=== PATIENT | female | born 1970 | race Two or more races ===

== ENCOUNTER → 2021-07-13 09:54 | Outpatient (BNVA) | payer OTHER, SELFPAY | PROVIDERS: PCP Internal Medicine; Visit Provider Physician Assistant | DX: Z13.89 Encounter for screening for other disorder (principal) ==

== ENCOUNTER → 2021-07-16 08:08 | Outpatient (BNVA) | payer OTHER, SELFPAY | PROVIDERS: PCP Internal Medicine; Visit Provider Physician Assistant | DX: E66.9 Obesity, unspecified (principal); E11.9 Type 2 diabetes mellitus without complications; M79.7 Fibromyalgia; L93.2 Other local lupus erythematosus; Z98.84 Bariatric surgery status; Z68.35 Body mass index [BMI] 35.0-35.9, adult | CPT/HCPCS: 99202 ==

== ENCOUNTER 2021-07-24 09:38 | Outpatient (REF) | payer OTHER, SELFPAY ==
[2021-07-24 09:52] LABS: MANUAL DIFF FLAG NO
[2021-07-24 11:13] LABS: Basophils Absolute Auto 0.1 X10*3/uL (0.0-0.2); Basophils Percent Auto 1.3 % (0-2); Eosinophils Absolute Auto 0.4 X10*3/uL (0.0-0.4); Eosinophils Percent Auto 4.4 % (0-4); Hematocrit 43.8 % (37.0-47.0); Hemoglobin 14.5 g/dl (12.0-16.0); Imm Gran Abs Auto 0.03 X10*3/uL (0.00-0.03); Imm Gran Pct Auto 0.4 % (0.0-0.4); Lymphocytes Absolute Auto 2.7 X10*3/uL (1.2-4.9); Lymphocytes Percent Auto 34.7 % (20-40); Mean Corpuscular HGB Conc 33.1 g/dl (31.0-35.0); Mean Corpuscular Hemoglobin 34.8 pg (27.0-33.0); Mean Platelet Volume 10.1 fL (9.4-12.3); Monocytes Absolute Auto 0.6 X10*3/uL (0.1-1.2); Monocytes Percent Auto 7.7 % (2-11); Neutrophils Absolute Auto 4.1 x10*3/uL (2.0-8.3); Neutrophils Percent Auto 51.5 % (45-73); Platelet Count 262 X10*3/uL (160-400); Red Blood Count 4.17 X10*6/uL (4.20-5.50); White Blood Count 7.9 X10*3/uL (4.8-10.8)
[2021-07-24 11:54] LABS: Alanine Aminotransferase 55 U/L (0-31); Albumin Level 4.2 g/dL (3.5-5.0); Alkaline Phosphatase 118 U/L (39-117); Anion Gap 14 (12-20); Aspartate Amino Transferase 25 U/L (5-31); Bilirubin Total 0.4 mg/dL (0.0-1.0); Blood Urea Nitrogen 17 mg/dL (9-16); C Reactive Protein 0.16 mg/dL (< or = 0.50); Calcium 9.5 mg/dL (8.4-10.2); Carbon Dioxide 25 mmol/L (22-29); Chloride 108 mmol/L (96-108); Cholesterol 193 mg/dL; Estimated Average Glucose 105 mg/dL; Estimated Glomerular Filt Rate > 60; Glucose Random 82 mg/dL (60-115); HDL Cholesterol 47 mg/dL; Hemoglobin A1c % 5.3 %; Iron 114 mcg/dL (30-160); LDL Cholesterol Calculated 83 mg/dl; Percent Iron Saturation 36 % (15-50); Potassium 4.4 mmol/L (3.3-5.1); Sodium 143 mmol/L (135-145); Total Iron Binding Capacity 318 mcg/dL (228-428); Triglycerides 316 mg/dL; Unsaturated Iron Binding 204 ug/dL
[2021-07-24 12:10] LABS: Ferritin 711 ng/mL (10-250); TSH reflex Free T4 0.87 uIU/mL (0.32-4.0)
[2021-07-24 12:41] LABS: Insulin 24 uU/mL (2-29); Vitamin D 25-OH Total 43.2 ng/mL (>30)
[2021-07-26 09:00] LABS: Folate 15.9 ng/mL (> or = 4.0); Vitamin B12 1682 pg/mL (200-900)
[2021-07-26 13:56] LABS: PTHI 52 pg/mL (16-77)
[2021-07-28 02:17] LABS: Zinc 98 mcg/dL (60-130)
[2021-07-29 11:21] LABS: Vitamin A 87 mcg/dL (38-98)
[2021-07-29 17:27] LABS: Vitamin B1 12 nmol/L (8-30)
== END 2021-07-24 09:39 | disposition home or self-care (01) ==
LOC: HO.LAB 09:38
PROVIDERS: Visit Provider Physician Assistant
DX: E11.9 Type 2 diabetes mellitus without complications (principal); E66.9 Obesity, unspecified; Z98.84 Bariatric surgery status
CPT/HCPCS: 36415; 80053; 80061; 82306; 82607; 82728; 82746; 83036; 83525; 83540; 83970; 84425; 84443; 84590; 84630; 85025; 86140

== ENCOUNTER 2021-08-11 10:52 | Outpatient (REF) | payer OTHER, SELFPAY ==
--- NOTE | ~2021-08-11 | FL_ITS ---
EXAMINATION: XR GI SERIES CLINICAL INFORMATION: Gastric bypass 8 years ago. COMPARISON: None TECHNIQUE: Air-contrast upper GI examination. FINDINGS: There is normal apposition of the vocal cords while saying E . There is normal elevation of the soft palate while saying candy . Patient swallowed thin and thick barium and half-inch diameter barium tablet without difficulty. No nasopharyngeal reflux or tracheal aspiration identified. No Zenker's diverticulum identified. There is normal esophageal motility without persistent stricture or hiatal hernia. There is noted to be spontaneous gastric esophageal reflux to the thoracic inlet which cleared slowly. No mucosal ulcer identified. Patient is status post gastric bypass surgery with no abnormal mass in the region of the anastomosis. No extravasation of contrast present. No mucosal ulceration. There is no delay in emptying of the gastric pouch. FLUOROSCOPY TIME: 1.9 minutes DOSE AREA PRODUCT: 13.343 Gy-cm2 (metzger-centimeter squared) FL/FL upper GI series IMPRESSION: Spontaneous gastroesophageal reflux to the level of the thoracic inlet. No significant abnormality involving the gastric bypass as described.
== END 2021-08-11 10:53 | disposition home or self-care (01) ==
LOC: HO.XRAY 10:52
PROVIDERS: Visit Provider Physician Assistant
DX: E66.9 Obesity, unspecified (principal); Z98.84 Bariatric surgery status
CPT/HCPCS: 74240

== ENCOUNTER → 2021-08-16 08:48 | Outpatient (REF) | payer OTHER, SELFPAY ==
--- NOTE | ~2021-08-16 | XR_ITS ---
EXAMINATION: XR CHEST CLINICAL INFORMATION: Obesity. COMPARISON: None TECHNIQUE: 2 views of the chest were obtained. FINDINGS: The lungs are well-expanded and clear. The heart size and pulmonary vascularity is normal. There is moderate spondylosis dorsal spine. No lytic or sclerotic process seen. XR/XR chest 2V IMPRESSION: Unremarkable chest exam.
--- NOTE | 2021-08-16 09:45 | ECG_ITS ---
Test Reason : E66.01 Blood Pressure : / mmHG Vent. Rate : 081 BPM Atrial Rate : 081 BPM P-R Int : 152 ms QRS Dur : 078 ms QT Int : 374 ms P-R-T Axes : 045 -07 -06 degrees QTc Int : 434 ms Normal sinus rhythm Inferior infarct , age undetermined Possible Anterior infarct , age undetermined Abnormal ECG No previous ECGs available Referred By: Vania Centeno Electronically Signed By:DEB SORIA MD
== END ==
LOC: HO.CARD 08:48
PROVIDERS: PCP Internal Medicine; Visit Provider Physician Assistant
DX: R94.31 Abnormal electrocardiogram [ECG] [EKG] (principal); M79.7 Fibromyalgia; K76.0 Fatty (change of) liver, not elsewhere classified; E78.2 Mixed hyperlipidemia; Z98.84 Bariatric surgery status
CPT/HCPCS: 71046; 93005; 99212

== ENCOUNTER → 2021-09-10 09:58 | Outpatient (BNVA) | payer OTHER, SELFPAY | PROVIDERS: PCP Internal Medicine; Visit Provider Physician Assistant | DX: E66.9 Obesity, unspecified (principal); Z68.33 Body mass index [BMI] 33.0-33.9, adult; E78.1 Pure hyperglyceridemia; E11.9 Type 2 diabetes mellitus without complications; R94.31 Abnormal electrocardiogram [ECG] [EKG]; Z11.0 Encounter for screening for intestinal infectious diseases; Z98.84 Bariatric surgery status | CPT/HCPCS: 99211; 99212 ==

== ENCOUNTER 2021-09-10 16:53 | Outpatient (REF) | payer OTHER, SELFPAY ==
[2021-09-11 15:18] LABS: H Pylori Breath Test Negative (Negative)
== END 2021-09-10 16:54 | disposition home or self-care (01) ==
LOC: HO.LNP 16:53
PROVIDERS: Visit Provider Physician Assistant
DX: E66.9 Obesity, unspecified (principal); E11.9 Type 2 diabetes mellitus without complications; R94.31 Abnormal electrocardiogram [ECG] [EKG]; Z98.84 Bariatric surgery status; Z11.0 Encounter for screening for intestinal infectious diseases
CPT/HCPCS: 83013

== ENCOUNTER → 2021-09-13 10:59 | Outpatient (BNVA) | payer OTHER, SELFPAY | PROVIDERS: PCP Internal Medicine; Visit Provider Dietitian, Registered | DX: E66.9 Obesity, unspecified (principal) | CPT/HCPCS: 97802 ==

== ENCOUNTER → 2021-09-15 13:24 | Outpatient (BNVA) | payer OTHER, SELFPAY | PROVIDERS: PCP Internal Medicine; Visit Provider Counselor Mental Health | DX: F41.1 Generalized anxiety disorder (principal); M79.7 Fibromyalgia; E66.9 Obesity, unspecified; Z98.84 Bariatric surgery status | CPT/HCPCS: 90791 ==

== ENCOUNTER 2021-09-21 09:28 | Day surgery (SDC) | payer OTHER, SELFPAY ==
--- NOTE | 2021-09-20 19:13 | MHC.SHP ---
Pre-Procedural Eval Section A Date of Service: 09/20/21 The patient is an INPATIENT: No The History & Physical has been completed within 30 days and I have reviewed it.: Yes Section B Chief Complaint: surgery status Relevant Family History (Specify if Yes): No Relevant Social History: None Present Medications: None Medical History: No relevant PMH History of Previous Operations: Relevant previous surgery/procedure and date(s) (Lap gastric bypass) Allergies: Allergies Allergy/AdvReac Type Severity Reaction Status Date / Time acetaminophen [From Percocet] Allergy Intermediate Confusion Verified 09/10/21 10:30 oxycodone [From Percocet] Allergy Intermediate Confusion Verified 09/10/21 10:30 Review of Systems Sugical H&P ROS: Negative: Constitution, Cardiovascular, Respiratory, Neurological, Psychiatric, Hem-Onc, Allergic/Immunologic, Gastrointestinal, Genitourinary, Musculoskeletal, Integumentary, Endocrine and Eyes/Ears/Nose/Throat Exam Surgical H&P Exam: Normal: HEENT, Normal: Heart, Normal: Lungs, Normal: Extremities, Normal: Abdomen, Normal: Skin and Normal: Neurological Plan Diagnosis/Plan: Unchanged (EGD to assess GERD following gastric bypass. Risks of bleeding and perforation were discussed) I have reviewed the history and physical and performed a pertinent physical examination on my patient. No changes have occurred unless specified.
[2021-09-21 10:00] VITALS: BMI 31.1
[2021-09-21 10:14] VITALS: BP 110/69; PULSE 66; RESP 15; TEMP 36.2; O2SAT 98
[2021-09-21] MEDS: Lactated Ringers 1,000 ML 100 ML IVCONT (10:25)
--- NOTE | 2021-09-21 10:26 | HO.ANESPROP2 ---
[facility] Active Problems Active Problems: All Active Problems (Updated 09/21/21 @ 10:06 by Sara Starr RN) Obesity (Acute) S/P gastric bypass (Acute) Diabetes mellitus (Acute) Fibromyalgia (Acute) Cutaneous lupus erythematosus (Acute) Arthritis (Acute) Migraines, neuralgic (Acute) Elevated triglycerides with high cholesterol (Acute) Steatosis, liver (Acute) Abnormal ECG (Acute) Hypertriglyceridemia (Acute) Generalized anxiety disorder (Acute) Past Medical History Medical History Arthritis Diabetes Fibromyalgia Leukemia Lupus Seizure Family History Family History Mother Diabetes Brother No problems noted. Father Heart problem Daughter No problems noted. Daughter No problems noted. Daughter No problems noted. Daughter No problems noted. Daughter No problems noted. Son No problems noted. Son No problems noted. Surgical History Surgical History Hx of abdominoplasty Hx of appendectomy Hx of breast reduction, elective Hx of colonoscopy Hx of esophagogastroduodenoscopy Hx of gastric bypass Hx of shoulder surgery History of Problems with Anesthesia: No Social History Social History Alcohol intake: never Patient Tobacco Use Status: Never used Tobacco Use of substances other than those prescribed or required for medical reasons: No Are you DNR?: No Advance Directives: No Advance Directives Information Provided: Yes Meds Allergies Allergy/AdvReac Type Severity Reaction Status Date / Time acetaminophen [From Percocet] Allergy Intermediate Confusion Verified 09/21/21 10:08 oxycodone [From Percocet] Allergy Intermediate Confusion Verified 09/21/21 10:08 Active Medications: Current Medications Lactated Ringer's (Lr) 1,000 mls @ 100 mls/hr IVCONT .Q10H KISHA Lactated Ringer's (Lr) 1,000 mls @ 80 mls/hr IVCONT .[id number] COUNT INCLUDES THE [facility] Home Medications Medication Instructions Recorded Confirmed Last Taken Type albuterol sulfate 90 mcg/actuation 2 puff inhalation Q4H PRN wheezing 07/13/21 07/16/21 Unknown History aerosol inhaler (ProAir HFA) bupropion HCl 150 mg tablet,12 hr 150 mg PO QAM 07/13/21 07/16/21 Unknown History sustained-release diazepam 10 mg tablet 10 mg PO BEDTIME PRN 07/13/21 07/16/21 Unknown History diclofenac sodium 1 % topical gel 2 g topical QID 07/13/21 07/16/21 Unknown History (Arthritis Pain (diclofenac)) hydrocortisone 1 % topical cream appl topical BID PRN 07/13/21 07/16/21 Unknown History hydroxychloroquine 200 mg tablet 200 mg PO BID 07/13/21 07/16/21 Unknown History insulin glargine 100 unit/mL (3 10 unit subcut .PRN 07/13/21 07/16/21 Unknown History mL) subcutaneous pen (Lantus Solostar U-100 Insulin) insulin lispro 100 unit/mL 5 unit subcut TID 07/13/21 07/16/21 Unknown History subcutaneous solution (Admelog U-100 Insulin lispro) loratadine 10 mg tablet 10 mg PO DAILY 07/13/21 07/16/21 Unknown History multivitamin 1 tab PO DAILY 07/13/21 07/16/21 Unknown History ondansetron HCl 4 mg tablet 4 mg PO Q8H 07/13/21 07/16/21 Unknown History pregabalin 100 mg capsule 100 mg PO BID 07/13/21 07/16/21 Unknown History tizanidine 2 mg capsule 2 mg PO TID PRN muscle spasm 07/13/21 07/16/21 Unknown History topiramate 50 mg capsule 50 mg PO DAILY 07/13/21 07/16/21 Unknown History sprinkle,extended release 24 hr triamcinolone acetonide 0.1 % topical 07/13/21 07/16/21 Unknown History topical ointment valacyclovir 1 gram tablet 1,000 mg PO DAILY 07/13/21 07/16/21 Unknown History calcium carbonate 600 mg-vitamin 1 tab PO BID 07/14/21 07/16/21 Unknown History D3 10 mcg (400 unit) tablet gabapentin 300 mg capsule 300 mg PO TID 07/14/21 07/16/21 Unknown History lidocaine 5 % topical ointment topical TID 07/14/21 07/16/21 Unknown History lidocaine 5 % topical patch 1 patch topical DAILY PRN mild pain 07/14/21 07/16/21 Unknown History mirabegron 50 mg tablet,extended 5 mg PO DAILY 07/14/21 07/16/21 Unknown History release 24 hr (Myrbetriq) omeprazole 40 mg capsule,delayed 40 mg PO BID 07/14/21 07/16/21 Unknown History release oxybutynin chloride 5 mg 5 mg PO DAILY 07/14/21 07/16/21 Unknown History tablet,extended release 24 hr paroxetine HCl 40 mg tablet 40 mg PO QAM 07/14/21 07/16/21 Unknown History sennosides 8.6 mg tablet (Natural 8.6 mg PO BEDTIME 07/14/21 07/16/21 Unknown History Senna Laxative) duloxetine 60 mg capsule,delayed 90 mg PO DAILY 08/16/21 08/16/21 Unknown History release trazodone 300 mg tablet 400 mg PO BEDTIME PRN 08/16/21 08/16/21 Unknown History Exam Exam Date and Time: September 21, 2021 1026 Height,Weight and Vital Signs: Height 4 ft 11 in Weight 69.853 kg Airway Mallampati Class: II TM Dist: >3cm Neck ROM: Full Loose/Missing/Broken Teeth: No Heart: RRR Lungs: CTA Assessment and Plan Assessment Anesthesia Assessment: Anesthesia Plan Discussed Final Anesthetic Review History of Problems with Anesthesia: No NPO: Yes ASA Class: III Final Preanesthetic Review: Meds/Allgs Chart Reviewed, Consent Obtained/Reviewed and Anes Risks/Benef Reviewed Patient Risk: Intermediate Procedure Risk: Intermediate Anesthetic Plan Anesthetic Plan: MAC: Disposition: Standard PACU
[2021-09-21 10:34] LABS: Glucose, Whole Blood 88 mg/dL (60-115)
--- NOTE | 2021-09-21 10:50 | P.BOP_ITS ---
Brief Operative Note Date of Service: 09/21/21 Pre-op diagnosis: GERD, s/p gastric bypass Post-op diagnosis: same Procedure: PROCEDURE DATE: 09/21/2021 PREOPERATIVE DIAGNOSIS: GERD, s/p gastric bypass POSTOPERATIVE DIAGNOSIS: ?Same as above. 1) Redundant gastric pouch, 2) esophagitis grade II, 3) gastritis PROCEDURE: [id number] with biopsies Surgeon: ?Gordon Martini M.D.. Ph.D. Environmental Emergencies Assistant: ?None ? Anesthesia: IV sedation Estimated blood loss: ?Minimal FINDINGS AND PROCEDURE: ? OPERATIVE INDICATIONS: ?The patient is a 51 year old female known to me who underwent a laparoscopic gastric bypass elsewhere. The patient had inadequate weight loss so far and has GERD.? Based on this information I recommended an upper endoscopy to evaluate the patient's symptoms.? Risks and complications of the surgery were discussed with the patient in advance particularly the possibility of perforation or bleeding that may require surgical intervention. The patient understood the risks and was in agreement with the plan. ? PROCEDURE: After informed consent was obtained by the patient, the patient was ?transferred to the Operating Room and was placed in the supine position.? After successful induction of IV sedation, a mouth block was placed and the patient was placed in the left lateral decubitus position. An upper endoscopy was performed next, the oropharynx and esophagus appeared within the normal limits. There was no hiatal hernia.? The z-line was irregular with tongues of gastric mucosa protruding into the esophagus in less than 50% circumference. Two biopsies were obtained from the distal esophagus 2-3 cm proximal to the GE junction and two biopsies from the GE junction. The gastric pouch was entered. There was very significant proximal fundal redundancy allowing complete scope retroflexion. There was gastritis. The gastrojejunostomy was patent. A biopsy was obtained from the gastric pouch. No significant bleeding was noted from any of the biopsy sites. There was no anastomotic ulcer.? At that point the scope was advanced into the proximal small intestine (proximal Susy limb) which appeared to be normal as well. The Susy limb and the pouch were decompressed and the scope was withdrawn from the patient's mouth. The patient was awaken and was transferred in stable condition to the Recovery Room for further care. I was present and performed all steps of the procedure. There were no residents to assist with this case. Gordon Martini M.D., Ph.D. Surgeon: Rashawn Martini MD Anesthesia: MAC Was an Environmental Emergencies Assistant used for this Procedure?: No Estimated blood loss (mL): 0 IV fluids (mL): 400 Urine output (mL): 0 (No [place] to record) Pathology: other (1) GE junction x2, 2) distal esophagus x2, 3) gastric pouch x1) Condition: stable Disposition: PACU
[2021-09-21 11:23] VITALS: BP 127/70; PULSE 70; RESP 14; TEMP 36.2; O2SAT 99
[2021-09-21 11:38] VITALS: BP 119/74; PULSE 62; RESP 17; O2SAT 99
[2021-09-21] MEDS: ondansetron HCL 4 MG/2 ML VIAL IVPUSH (11:44)
[2021-09-21 11:53] VITALS: BP 100/63; PULSE 60; RESP 17; O2SAT 100
[2021-09-21 12:23] VITALS: BP 110/71; PULSE 56; RESP 17; O2SAT 100
[2021-09-21 12:54] VITALS: BP 114/75; PULSE 60; RESP 17; TEMP 36.1; O2SAT 97
== END 2021-09-21 13:30 | disposition home or self-care (01) ==
PROVIDERS: PCP Internal Medicine; Visit Provider Surgery
PROC: 0DJ08ZZ Inspection of Upper Intestinal Tract, Via Natural or Artificial Opening Endoscopic (ICD-10-PCS; CPT 43235; principal; 2021-09-21 10:40)
DX: K21.9 Gastro-esophageal reflux disease without esophagitis (principal); Z98.84 Bariatric surgery status; K29.50 Unspecified chronic gastritis without bleeding; K20.80 Other esophagitis without bleeding; E66.9 Obesity, unspecified; Z68.33 Body mass index [BMI] 33.0-33.9, adult; R94.31 Abnormal electrocardiogram [ECG] [EKG]; L93.1 Subacute cutaneous lupus erythematosus; M79.7 Fibromyalgia; E78.1 Pure hyperglyceridemia; E11.9 Type 2 diabetes mellitus without complications; Z79.4 Long term (current) use of insulin; Z79.899 Other long term (current) drug therapy; Z88.8 Allergy status to other drugs, medicaments and biological substances; Z85.6 Personal history of leukemia
CPT/HCPCS: 43239; 82947; 88305; 88342; J2250; J2405; J2550

== ENCOUNTER → 2021-09-27 08:57 | Outpatient (REF) | payer OTHER, SELFPAY ==
--- NOTE | ~2021-09-27 | NM_ITS ---
Myocardial perfusion study Indication: Preoperative cardiovascular risk stratification with abnormal EKG Technique: The patient was brought in for a Lexiscan perfusion study on 09/27/2021. Patient performed low-level exercise and was injected 0.4 mg of Lexiscan intravenously. Within a minute of injection, 25 mCi of sestamibi was given intravenously. Images were obtained using the SPECT gamma camera interlaced with the gating device. Images were obtained in supine position. Resting perfusion study was performed on 09/28/2021. Patient was administered 25 mCi of sestamibi intravenously at rest. Images were then obtained in supine position. Images obtained with and without CT attenuation. Total DLP 124 mGy-cm. Images were processed with the software and compared side to side in short axis, horizontal long axis and vertical long axis views. Findings: The stress perfusion study showed non attenuated images show moderately reduced uptake in the apex and mildly reduced uptake in the anterolateral as well as the distal anterior wall of the LV myocardium. Rest the LV myocardium is normally perfused. Attenuation corrected images show mildly reduced uptake in the apex uptake in the septum of the LV myocardium.. The gated study shows normal LV systolic function with calculated LVEF of 63%. LV cavity is normal size. The gated study shows normal systolic wall thickening and contraction of segments. Resting study shows nontender images show normal uptake of radiotracer in all segments of LV myocardium. Attenuation corrected images show mildly reduced uptake in the apex as well as minimally reduced uptake in the septum of the LV myocardium. Gating at rest reveals normal systolic wall motion with ejection fraction at 66%. The findings are consistent with non attenuated images suggestive of mild intensity ischemia of the anterolateral and distal anterior as well as moderate intensity ischemia of the apex. Attenuation corrected images show no clear reversible defect. Overall findings equivocal for anterolateral, distal anterior and apical ischemia. NM/NM cardiolite stress test Impression: 1. Myocardial perfusion imaging study shows equivocal findings of ischemia in the LAD territory. Possibly could be due to shifting breast attenuation artifact. 2. Gated LVEF is 63% 3. Transient ischemic dilatation not present EKG is nondiagnostic for ischemia
--- NOTE | 2021-09-27 09:00 | CA_ITS ---
Acquisition Time: 2021-09-27 09:13:11 Total Exercise Time: 00:02:00 Test Indications: Pre op, Abn. EKG. SOB Medications: Protocol: LEXISCAN Max HR: 114 BPM 67% of Pred: 168 BPM Max BP: 108/074 mmHG Max Work Load: 1.6 METS Pharmacological stress test with Lexiscan injection, while walking on treadmill, without anginal symptoms, without arrythmia, with normotensive response to injection, with nondiagnostic EKG for ischemia. In recovery she reported lightheadedness and headache that was treated with Aminophylline 75mg IVP to reverse Lexiscan with resolution of symptom. Nuclear images pending. Test reviewed with Dr Muro Referred By: Vania Centeno Overread By: JEANMARIE KRUSE
== END ==
LOC: HO.CARD 08:57
PROVIDERS: Visit Provider Surgery
DX: R94.31 Abnormal electrocardiogram [ECG] [EKG] (principal); E11.9 Type 2 diabetes mellitus without complications; E66.9 Obesity, unspecified; Z98.84 Bariatric surgery status
CPT/HCPCS: 78452; 93017; A9500; J0280; J2785

== ENCOUNTER → 2021-10-05 10:51 | Outpatient (REF) | payer OTHER, SELFPAY | LOC: HO.CARD 10:51 | PROVIDERS: PCP Internal Medicine; Visit Provider Surgery | DX: R94.31 Abnormal electrocardiogram [ECG] [EKG] (principal) | CPT/HCPCS: 93308; Q9957 ==

== ENCOUNTER 2021-10-06 08:40 | Outpatient (REF) | payer OTHER, SELFPAY ==
--- NOTE | ~2021-10-06 | US_ITS ---
EXAMINATION: US COMPLETE ABDOMEN WITH LIVER ELASTOGRAPHY CLINICAL INFORMATION: Fatty change of liver. COMPARISON: None. TECHNIQUE: Real-time imaging of the abdominal viscera. Noninvasive ultrasound liver fibrosis assessment is performed using Cristina ElastPQ point quantification shear wave elastography (2D-SWE) with a C5-2 MHz transducer. Multiple elastography samples are obtained. FINDINGS: PANCREAS: The visualized pancreatic head and body are normal in appearance. The tail of the pancreas is obscured from visualization by the overlying bowel gas. ABDOMINAL AORTA: The middle, and distal aortic segments are normal in caliber. The proximal abdominal aorta is not visualized. INFERIOR VENA CAVA: Visualized portions are normal. LIVER: The liver demonstrates normal size, contour and diffuse increased echogenicity. No focal lesion or intrahepatic biliary duct dilatation. The right lobe measures 16.1 cm in length. The left lobe measures 6.85 cm in length. Portal flow is hepatopetal. Shear wave liver elastography median stiffness is 1.87 m/s (reference: normal median stiffness is 1.3 m/s or less). IQR/median stiffness to assess sampling precision is 0.04 (reference: good quality data set is IQR/median stiffness of 0.15 or less). GALLBLADDER: Normal. The gallbladder is physiologically distended without evidence of stones, sludge, polyps, wall thickening or pericholecystic fluid. COMMON BILE DUCT: Normal in caliber measuring 0.9 cm in diameter. RIGHT KIDNEY: Normal. No hydronephrosis. No renal calculi or focal parenchymal lesions. The kidney measures 10.4 cm in maximum dimension. LEFT KIDNEY: Normal. No hydronephrosis. No renal calculi or focal parenchymal lesions. The kidney measures 10.2 cm in maximum dimension. SPLEEN: The spleen measures 6.9 cm in maximum dimension. FREE FLUID: None. US/US abdomen comp w elastography IMPRESSION: Mild hepatic steatosis without focal lesion. Mild splenomegaly without focal lesion. Liver elastography: Median liver stiffness measures 1.87 cm corresponding to cACLD (suggestive). REFERENCE: Society of Radiologists in Ultrasound Liver Stiffness Thresholds (2019): LIVER STIFFNESS THRESHOLDS: *Liver Stiffness equal or less than 1.3 m/s: High probability of being normal. *Liver Stiffness less than 1.7 m/s: In the absence of other known clinical signs, rules out compensated advanced chronic liver disease. *Liver Stiffness 1.7-2.1 m/s: Suggestive of compensated advanced chronic liver disease but need further test for confirmation. *Liver Stiffness over 2.1 m/s: Rules in compensated advanced chronic liver disease. *Liver Stiffness over 2.4 m/s: Suggestive of clinically significant portal hypertension. QUALITY OF DATA SET: *IQR/Median value equal or less than 0.15 implies a quality data set. *IQR/Median value over 0.15 implies a poor quality data set. SIGNIFICANT CHANGE FROM PRIOR EXAM: Significant change if liver stiffness measurement is 10% or greater from prior exam. OTHER CONSIDERATIONS: The stage of liver fibrosis may be overestimated in the setting of acute hepatitis, liver inflammation, elevated liver function tests, hepatic vascular congestion, obstructive cholestasis, non-fasting state, and infiltrative diseases such as amyloidosis and lymphoma. In some patients with NAFLD, the liver stiffness thresholds for compensated advanced chronic liver disease may be lower. In causes other than viral hepatitis and NAFLD, liver stiffness thresholds are not well established.
== END 2021-10-06 08:41 | disposition home or self-care (01) ==
LOC: HO.US 08:40
PROVIDERS: Visit Provider Surgery
DX: K76.0 Fatty (change of) liver, not elsewhere classified (principal)
CPT/HCPCS: 76705; 76981

== ENCOUNTER → 2021-10-12 14:29 | Outpatient (BNVA) | payer OTHER, SELFPAY | PROVIDERS: PCP Internal Medicine; Visit Provider Internal Medicine Cardiovascular Disease | DX: Z01.810 Encounter for preprocedural cardiovascular examination (principal) | CPT/HCPCS: 99202 ==

== ENCOUNTER 2021-10-14 10:50 | Inpatient (IN) | payer OTHER, SELFPAY ==
[2021-10-06 10:20] LABS: MANUAL DIFF FLAG NO
[2021-10-06 11:00] LABS: Basophils Absolute Auto 0.1 X10*3/uL (0.0-0.2); Basophils Percent Auto 1.1 % (0-2); Eosinophils Absolute Auto 0.1 X10*3/uL (0.0-0.4); Eosinophils Percent Auto 1.4 % (0-4); Hematocrit 44.2 % (37.0-47.0); Hemoglobin 14.6 g/dl (12.0-16.0); Imm Gran Abs Auto 0.02 X10*3/uL (0.00-0.03); Imm Gran Pct Auto 0.4 % (0.0-0.4); Lymphocytes Absolute Auto 1.9 X10*3/uL (1.2-4.9); Lymphocytes Percent Auto 33.4 % (20-40); Mean Corpuscular Hemoglobin 35.3 pg (27.0-33.0); Mean Corpuscular Volume 106.8 fL (80.0-98.0); Mean Platelet Volume 10.1 fL (9.4-12.3); Monocytes Absolute Auto 0.4 X10*3/uL (0.1-1.2); Monocytes Percent Auto 7.5 % (2-11); Neutrophils Absolute Auto 3.2 x10*3/uL (2.0-8.3); Neutrophils Percent Auto 56.2 % (45-73); Platelet Count 223 X10*3/uL (160-400); Red Blood Count 4.14 X10*6/uL (4.20-5.50); Red Cell Distribution Width 12.7 % (11.0-16.0); White Blood Count 5.6 X10*3/uL (4.8-10.8)
[2021-10-06 11:04] LABS: Prothrombin Time 11.9 SEC (10.0-13.1)
[2021-10-06 11:06] LABS: Partial Thromboplastin Time 43.2 SEC (24.1-38.0)
[2021-10-06 11:16] LABS: Estimated Average Glucose 100 mg/dL; Hemoglobin A1c % 5.1 %
[2021-10-06 11:18] VITALS: BMI 32.9
[2021-10-06 12:14] LABS: Alanine Aminotransferase 41 U/L (0-31); Albumin Level 4.3 g/dL (3.5-5.0); Alkaline Phosphatase 99 U/L (39-117); Anion Gap 13 (12-20); Aspartate Amino Transferase 27 U/L (5-31); Bilirubin Total 0.5 mg/dL (0.0-1.0); Blood Urea Nitrogen 15 mg/dL (9-16); C Reactive Protein 0.12 mg/dL (< or = 0.50); Calcium 9.6 mg/dL (8.4-10.2); Carbon Dioxide 25 mmol/L (22-29); Chloride 110 mmol/L (96-108); Cholesterol 166 mg/dL; Creatinine Clr Calc Pharmacy 72.9; Estimated Glomerular Filt Rate > 60; Glucose Random 94 mg/dL (60-115); HDL Cholesterol 47 mg/dL; LDL Cholesterol Calculated 99 mg/dl; Potassium 4.3 mmol/L (3.3-5.1); Sodium 144 mmol/L (135-145); Total Protein 6.7 g/dL (6.5-8.0); Triglycerides 104 mg/dL
[2021-10-06 12:23] LABS: TSH reflex Free T4 0.65 uIU/mL (0.32-4.0)
[2021-10-06 12:42] LABS: Insulin 8 uU/mL (2-29)
--- NOTE | 2021-10-10 00:17 | MHC.SHP ---
Pre-Procedural Eval Section A Date of Service: 10/10/21 The patient is an INPATIENT: No The History & Physical has been completed within 30 days and I have reviewed it.: Yes Section B Chief Complaint: Obesity, unspecified Relevant Family History (Specify if Yes): No Relevant Social History: None Present Medications: None Medical History: No relevant PMH History of Previous Operations: Relevant previous surgery/procedure and date(s) (laparoscopic gastric bypass) Allergies: Allergies Allergy/AdvReac Type Severity Reaction Status Date / Time oxycodone [From Percocet] Allergy Intermediate Confusion Verified 10/01/21 12:22 Review of Systems Sugical H&P ROS: Negative: Constitution, Cardiovascular, Respiratory, Neurological, Psychiatric, Hem-Onc, Allergic/Immunologic, Gastrointestinal, Genitourinary, Musculoskeletal, Integumentary, Endocrine and Eyes/Ears/Nose/Throat Exam Surgical H&P Exam: Normal: HEENT, Normal: Heart, Normal: Lungs, Normal: Extremities, Normal: Abdomen, Normal: Skin and Normal: Neurological Plan Diagnosis/Plan: Unchanged I have reviewed the history and physical and performed a pertinent physical examination on my patient. No changes have occurred unless specified.
--- NOTE | 2021-10-13 08:50 | HO.ANESPROP2 ---
Documented by User: Alejandrina Tello NP 10/13/21 10:46 HPI - Anesthesia Eval Consult details Narrative: 51yo F for Revision of Gastric Bypass to Gastric Sleeve, EGD,possible diaphragmatic hernia,possible ventral hernia,possible open Per Cardiology after abnormal EKG and equivocal stress testing: Preoperative cardiovascular examination in this middle-aged woman with prior history of diabetes as well as strong family history for premature coronary artery disease.? However she is extremely active and has no symptoms at high workload.? Her physical capacity is greater than 4 Mets.? However she was referred for a preoperative cardiovascular stress testing which was equivocal for possible LAD territory ischemia.? Patient is surprised to know about the abnormality.? She says she is ready to undergo surgery and has undergone recent surgeries under general anesthesia including left shoulder surgery in May and right shoulder surgery few months prior to that, both of them about 2 our surgery under general anesthesia without any complications.? From a functional capacity perspective although she has risk factors, she is optimized to undergo surgery, however abnormal stress test with a risk factor raises her risk of perioperative cardiovascular morbidity and mortality in the intermediate range.? Further testing would be with the anatomic evaluation with coronary CTA.? The patient is reluctant and wants to undergo surgery as planned which is at this point time given her functional capacity as mentioned above a reasonable approach.? Her stress test could be false-positive related to shifting breast attenuation artifact.? However would consider coronary anatomic evaluation post surgically.? Please consult us in the perioperative time if need be.? Close hemodynamic and cardiovascular monitoring during surgery. Case reviewed with Dr Jenifer HARGROVE Active Problems Active Problems: All Active Problems (Updated 10/12/21 @ 15:28 by Mauricio Muro MD) Preoperative cardiovascular examination (Acute) Obesity (Acute) S/P gastric bypass (Acute) Diabetes mellitus (Acute) Fibromyalgia (Acute) Cutaneous lupus erythematosus (Acute) Arthritis (Acute) Migraines, neuralgic (Acute) Elevated triglycerides with high cholesterol (Acute) Steatosis, liver (Acute) Abnormal ECG (Acute) Hypertriglyceridemia (Acute) Generalized anxiety disorder (Acute) Steatosis, liver (Acute) BMI 36.0-36.9,adult (Acute) Stress incontinence (Acute) Asthma (Acute) BMI 32.0-32.9,adult (Acute) GERD (gastroesophageal reflux disease) (Acute) Past Medical History Medical History (Updated 10/12/21 @ 15:28 by Mauricio Muro MD) Arthritis Diabetes Fibromyalgia Leukemia Lupus Seizure Splenomegaly Family History Family History Mother Diabetes Brother No problems noted. Father Heart problem Daughter No problems noted. Daughter No problems noted. Daughter No problems noted. Daughter No problems noted. Daughter No problems noted. Son No problems noted. Son No problems noted. Surgical History Surgical History Hx of abdominoplasty Hx of appendectomy Hx of breast reduction, elective Hx of colonoscopy Hx of esophagogastroduodenoscopy (09/21/21) Hx of gastric bypass Hx of shoulder surgery History of Problems with Anesthesia: No Social History Social History Are you a primary resident care technician to a significant other at home: No Do you presently have visiting nurse or other home services: No Alcohol intake: never Patient Tobacco Use Status: Never used Tobacco Meds Allergies Allergy/AdvReac Type Severity Reaction Status Date / Time oxycodone [From Percocet] Allergy Intermediate Confusion Verified 10/12/21 14:46 Home Medications Medication Instructions Recorded Confirmed Last Taken Type albuterol sulfate 90 mcg/actuation 2 puff inhalation Q4H PRN wheezing 07/13/21 10/12/21 Unknown History aerosol inhaler (ProAir HFA) bupropion HCl 150 mg tablet,12 hr 150 mg PO QAM 07/13/21 10/12/21 Unknown History sustained-release diazepam 10 mg tablet 10 mg PO BEDTIME PRN Insomnia 07/13/21 10/12/21 Unknown History diclofenac sodium 1 % topical gel 2 g topical QID 07/13/21 10/12/21 Unknown History (Arthritis Pain (diclofenac)) hydrocortisone 1 % topical cream appl topical BID PRN Itching 07/13/21 10/12/21 Unknown History insulin glargine 100 unit/mL (3 10 unit subcut .PRN 07/13/21 10/12/21 Unknown History mL) subcutaneous pen (Lantus Solostar U-100 Insulin) insulin lispro 100 unit/mL 5 unit subcut TID 07/13/21 10/12/21 Unknown History subcutaneous solution (Admelog U-100 Insulin lispro) loratadine 10 mg tablet 10 mg PO DAILY 07/13/21 10/12/21 Unknown History multivitamin 1 tab PO DAILY 07/13/21 10/12/21 Unknown History ondansetron HCl 4 mg tablet 4 mg PO Q8H 07/13/21 10/12/21 Unknown History pregabalin 100 mg capsule 100 mg PO BID 07/13/21 10/12/21 Unknown History tizanidine 2 mg capsule 2 mg PO TID PRN muscle spasm 07/13/21 10/12/21 Unknown History topiramate 50 mg capsule 50 mg PO DAILY 07/13/21 10/12/21 Unknown History sprinkle,extended release 24 hr triamcinolone acetonide 0.1 % topical 07/13/21 10/12/21 Unknown History topical ointment valacyclovir 1 gram tablet 1,000 mg PO DAILY 07/13/21 10/12/21 Unknown History calcium carbonate 600 mg-vitamin 1 tab PO BID 07/14/21 10/12/21 Unknown History D3 10 mcg (400 unit) tablet gabapentin 300 mg capsule See Rx Instructions .Route .COMPLEX 07/14/21 10/12/21 Unknown History lidocaine 5 % topical ointment topical TID 07/14/21 10/12/21 Unknown History lidocaine 5 % topical patch 1 patch topical DAILY PRN mild pain 07/14/21 10/12/21 Unknown History mirabegron 50 mg tablet,extended 50 mg PO DAILY 07/14/21 10/12/21 Unknown History release 24 hr (Myrbetriq) oxybutynin chloride 5 mg 5 mg PO DAILY 07/14/21 10/12/21 Unknown History tablet,extended release 24 hr paroxetine HCl 40 mg tablet 40 mg PO QAM 07/14/21 10/12/21 Unknown History sennosides 8.6 mg tablet (Natural 8.6 mg PO BEDTIME 07/14/21 10/12/21 Unknown History Senna Laxative) duloxetine 60 mg capsule,delayed 90 mg PO DAILY 08/16/21 10/12/21 Unknown History release trazodone 300 mg tablet 400 mg PO BEDTIME PRN Insomnia 08/16/21 10/12/21 Unknown History Exam Exam Date and Time: October 13, 2021 0850 Height,Weight and Vital Signs: Height 4 ft 11 in Weight 73.936 kg Pertinent Lab Results Pertinent Lab Results: Laboratory Tests 10/06/21 10/06/21 10/06/21 10:15 10:15 10:15 WBC 5.6 RBC 4.14 L Hgb 14.6 Hct 44.2 MCV 106.8 H MCH 35.3 H MCHC 33.0 RDW 12.7 Plt Count 223 MPV 10.1 Immature Gran % (Auto) 0.4 Neut % (Auto) 56.2 Lymph % (Auto) 33.4 [place] % (Auto) 7.5 Eos % (Auto) 1.4 Baso % (Auto) 1.1 Lymph # (Auto) 1.9 [place] # (Auto) 0.4 Eos # (Auto) 0.1 Baso # (Auto) 0.1 Abs Immat Gran (auto) 0.02 Absolute Neuts (auto) 3.2 Absolute Nucleated RBC 0.000 Nucleated RBC % (auto) 0.0 PT 11.9 INR 1.0 APTT 43.2 H Sodium 144 Potassium 4.3 Chloride 110 H Carbon Dioxide 25 Anion Gap 13 BUN 15 Creatinine 0.79 Estim Creat Clear Calc 72.9 Estimated GFR > 60 Random Glucose 94 Estimat Average Glucose Hemoglobin A1c % Insulin Level 8 Calcium 9.6 Total Bilirubin 0.5 AST 27 ALT 41 H Alkaline Phosphatase 99 C-Reactive Protein 0.12 Total Protein 6.7 Albumin 4.3 Triglycerides 104 Cholesterol 166 LDL Cholesterol, Calc 99 HDL Cholesterol 47 TSH 0.65 Blood Type Antibody Screen 10/06/21 10/06/21 10:15 10:15 WBC RBC Hgb Hct MCV MCH MCHC RDW Plt Count MPV Immature Gran % (Auto) Neut % (Auto) Lymph % (Auto) [place] % (Auto) Eos % (Auto) Baso % (Auto) Lymph # (Auto) [place] # (Auto) Eos # (Auto) Baso # (Auto) Abs Immat Gran (auto) Absolute Neuts (auto) Absolute Nucleated RBC Nucleated RBC % (auto) PT INR APTT Sodium Potassium Chloride Carbon Dioxide Anion Gap BUN Creatinine Estim Creat Clear Calc Estimated GFR Random Glucose Estimat Average Glucose 100 Hemoglobin A1c % 5.1 Insulin Level Calcium Total Bilirubin AST ALT Alkaline Phosphatase C-Reactive Protein Total Protein Albumin Triglycerides Cholesterol LDL Cholesterol, Calc HDL Cholesterol TSH Blood Type O Positive Antibody Screen NEGATIVE Narrative Narrative: EKG 08/2021 Vent. Rate : 081 BPM ? ? Atrial Rate : 081 BPM ?? P-R Int : 152 ms? QRS Dur : 078 ms ? ? QT Int : 374 ms ? ? ? P-R-T Axes : 045 -07 -06 degrees ?? QTc Int : 434 ms ? Normal sinus rhythm Inferior infarct , age undetermined Possible Anterior infarct , age undetermined Abnormal ECG No previous ECGs available NM cardiolite stress test 09/2021 Impression: ? 1.? Myocardial perfusion imaging study shows equivocal findings of ischemia in the LAD territory. Possibly could be due to shifting breast attenuation artifact. 2.? Gated LVEF is 63% 3. Transient ischemic dilatation not present ? EKG is nondiagnostic for ischemia Assessment and Plan Assessment Anesthesia Assessment: Chart Reviewed Final Anesthetic Review History of Problems with Anesthesia: No Documented by User: Jovanna Dewey MD 10/14/21 08:45 [facility] Active Problems Active Problems: All Active Problems (Updated 10/12/21 @ 15:28 by Mauricio Muro MD) Preoperative cardiovascular examination (Acute) Obesity (Acute) S/P gastric bypass (Acute) Diabetes mellitus (Acute) Fibromyalgia (Acute) Cutaneous lupus erythematosus (Acute) Arthritis (Acute) Migraines, neuralgic (Acute) Elevated triglycerides with high cholesterol (Acute) Steatosis, liver (Acute) Abnormal ECG (Acute) Hypertriglyceridemia (Acute) Generalized anxiety disorder (Acute) Steatosis, liver (Acute) BMI 36.0-36.9,adult (Acute) Stress incontinence (Acute) Asthma (Acute).Controlled. Only uses inhalers prn BMI 32.0-32.9,adult (Acute) GERD (gastroesophageal reflux disease) (Acute) Denies [facility] Past Medical History Medical History (Updated 10/12/21 @ 15:28 by Mauricio Muro MD) Arthritis Diabetes Fibromyalgia Leukemia Lupus Seizure Splenomegaly Family History Family History Mother Diabetes Brother No problems noted. Father Heart problem Daughter No problems noted. Daughter No problems noted. Daughter No problems noted. Daughter No problems noted. Daughter No problems noted. Son No problems noted. Son No problems noted. Family history of problems with anesthesia: No Surgical History Surgical History Hx of abdominoplasty Hx of appendectomy Hx of breast reduction, elective Hx of colonoscopy Hx of esophagogastroduodenoscopy (09/21/21) Hx of gastric bypass Hx of shoulder surgery History of Problems with Anesthesia: No Social History Social History Are you a primary resident care technician to a significant other at home: No Do you presently have visiting nurse or other home services: No Alcohol intake: never Patient Tobacco Use Status: Never used Tobacco Meds Allergies Allergy/AdvReac Type Severity Reaction Status Date / Time oxycodone [From Percocet] Allergy Intermediate Confusion Verified 10/12/21 14:46 Home Medications Medication Instructions Recorded Confirmed Last Taken Type albuterol sulfate 90 mcg/actuation 2 puff inhalation Q4H PRN wheezing 07/13/21 10/12/21 Unknown History aerosol inhaler (ProAir HFA) bupropion HCl 150 mg tablet,12 hr 150 mg PO QAM 07/13/21 10/12/21 Unknown History sustained-release diazepam 10 mg tablet 10 mg PO BEDTIME PRN Insomnia 07/13/21 10/12/21 Unknown History diclofenac sodium 1 % topical gel 2 g topical QID 07/13/21 10/12/21 Unknown History (Arthritis Pain (diclofenac)) hydrocortisone 1 % topical cream appl topical BID PRN Itching 07/13/21 10/12/21 Unknown History insulin glargine 100 unit/mL (3 10 unit subcut .PRN 07/13/21 10/12/21 Unknown History mL) subcutaneous pen (Lantus Solostar U-100 Insulin) insulin lispro 100 unit/mL 5 unit subcut TID 07/13/21 10/12/21 Unknown History subcutaneous solution (Admelog U-100 Insulin lispro) loratadine 10 mg tablet 10 mg PO DAILY 07/13/21 10/12/21 Unknown History multivitamin 1 tab PO DAILY 07/13/21 10/12/21 Unknown History ondansetron HCl 4 mg tablet 4 mg PO Q8H 07/13/21 10/12/21 Unknown History pregabalin 100 mg capsule 100 mg PO BID 07/13/21 10/12/21 Unknown History tizanidine 2 mg capsule 2 mg PO TID PRN muscle spasm 07/13/21 10/12/21 Unknown History topiramate 50 mg capsule 50 mg PO DAILY 07/13/21 10/12/21 Unknown History sprinkle,extended release 24 hr triamcinolone acetonide 0.1 % topical 07/13/21 10/12/21 Unknown History topical ointment valacyclovir 1 gram tablet 1,000 mg PO DAILY 07/13/21 10/12/21 Unknown History calcium carbonate 600 mg-vitamin 1 tab PO BID 07/14/21 10/12/21 Unknown History D3 10 mcg (400 unit) tablet gabapentin 300 mg capsule See Rx Instructions .Route .COMPLEX 07/14/21 10/12/21 Unknown History lidocaine 5 % topical ointment topical TID 07/14/21 10/12/21 Unknown History lidocaine 5 % topical patch 1 patch topical DAILY PRN mild pain 07/14/21 10/12/21 Unknown History mirabegron 50 mg tablet,extended 50 mg PO DAILY 07/14/21 10/12/21 Unknown History release 24 hr (Myrbetriq) oxybutynin chloride 5 mg 5 mg PO DAILY 07/14/21 10/12/21 Unknown History tablet,extended release 24 hr paroxetine HCl 40 mg tablet 40 mg PO QAM 07/14/21 10/12/21 Unknown History sennosides 8.6 mg tablet (Natural 8.6 mg PO BEDTIME 07/14/21 10/12/21 Unknown History Senna Laxative) duloxetine 60 mg capsule,delayed 90 mg PO DAILY 08/16/21 10/12/21 Unknown History release trazodone 300 mg tablet 400 mg PO BEDTIME PRN Insomnia 08/16/21 10/12/21 Unknown History Exam Height,Weight and Vital Signs: Height 4 ft 11 in Weight 73.936 kg Vital Signs Temp Pulse Resp BP Pulse Ox O2 Del Method 10/14/21 06:33 97.8 F 65 18 117/70 98 Room Air Pertinent Lab Results Pertinent Lab Results: Laboratory Tests 10/06/21 10/06/21 10/06/21 10:15 10:15 10:15 WBC 5.6 RBC 4.14 L Hgb 14.6 Hct 44.2 MCV 106.8 H MCH 35.3 H MCHC 33.0 RDW 12.7 Plt Count 223 MPV 10.1 Immature Gran % (Auto) 0.4 Neut % (Auto) 56.2 Lymph % (Auto) 33.4 [place] % (Auto) 7.5 Eos % (Auto) 1.4 Baso % (Auto) 1.1 Lymph # (Auto) 1.9 [place] # (Auto) 0.4 Eos # (Auto) 0.1 Baso # (Auto) 0.1 Abs Immat Gran (auto) 0.02 Absolute Neuts (auto) 3.2 Absolute Nucleated RBC 0.000 Nucleated RBC % (auto) 0.0 PT 11.9 INR 1.0 APTT 43.2 H Sodium 144 Potassium 4.3 Chloride 110 H Carbon Dioxide 25 Anion Gap 13 BUN 15 Creatinine 0.79 Estim Creat Clear Calc 72.9 Estimated GFR > 60 Random Glucose 94 Estimat Average Glucose Hemoglobin A1c % Insulin Level 8 Calcium 9.6 Total Bilirubin 0.5 AST 27 ALT 41 H Alkaline Phosphatase 99 C-Reactive Protein 0.12 Total Protein 6.7 Albumin 4.3 Triglycerides 104 Cholesterol 166 LDL Cholesterol, Calc 99 HDL Cholesterol 47 TSH 0.65 Blood Type Antibody Screen 10/06/21 10/06/21 10:15 10:15 WBC RBC Hgb Hct MCV MCH MCHC RDW Plt Count MPV Immature Gran % (Auto) Neut % (Auto) Lymph % (Auto) [place] % (Auto) Eos % (Auto) Baso % (Auto) Lymph # (Auto) [place] # (Auto) Eos # (Auto) Baso # (Auto) Abs Immat Gran (auto) Absolute Neuts (auto) Absolute Nucleated RBC Nucleated RBC % (auto) PT INR APTT Sodium Potassium Chloride Carbon Dioxide Anion Gap BUN Creatinine Estim Creat Clear Calc Estimated GFR Random Glucose Estimat Average Glucose 100 Hemoglobin A1c % 5.1 Insulin Level Calcium Total Bilirubin AST ALT Alkaline Phosphatase C-Reactive Protein Total Protein Albumin Triglycerides Cholesterol LDL Cholesterol, Calc HDL Cholesterol TSH Blood Type O Positive Antibody Screen NEGATIVE Laboratory Results - last 24 hr 10/13/21 12:05 COVID-19 ([facility]) Negative COVID-19 Clin Com See Note Laboratory Results - last 24 hr 10/13/21 10/14/21 12:05 06:27 POC Glucose 95 COVID-19 ([facility]) Negative COVID-19 Clin Com See Note Airway Mallampati Class: II TM Dist: >3cm Neck ROM: Full Loose/Missing/Broken Teeth: Yes (Some missing) Heart: RRR Lungs: CTAB Assessment and Plan Assessment Anesthesia Assessment: Anesthesia Plan Discussed and Chart Reviewed (Cardiology note reviewed with patient. Patient is aware of possible increased cardiac risk and wishes to proceed) Final Anesthetic Review Family History of Problems with Anesthesia: No History of Problems with Anesthesia: No NPO: Yes ASA Class: III Final Preanesthetic Review: No Changes in Pt Med Stat, Meds/Allgs Chart Reviewed, Consent Obtained/Reviewed and Anes Risks/Benef Reviewed Patient Risk: Intermediate Procedure Risk: Intermediate Assessment/Block/Sedation in SS: Assess/Block/Sedation-SS Anesthetic Plan Anesthetic Plan: GA Disposition: Standard PACU and Inp. Admit - Standard Bed
[2021-10-13 12:39] LABS: COVID-19 Test Negative (Negative)
[2021-10-14] VITALS (14 sets, daily range): BP systolic 113–141; BP diastolic 62–86; PULSE 61–83; RESP 12–22; TEMP 36.1–36.7; O2SAT 98–100
[2021-10-14] MEDS: Lactated Ringers 1,000 ML 100 ML IVCONT ×4 (07:06→19:33)
[2021-10-14 07:44] LABS: Glucose, Whole Blood 95 mg/dL (60-115)
[2021-10-14] MEDS: ceFAZolin Sodium/Dextrose,Iso 2 GM/50 ML PIGGYBACK IV ×2 (07:58→13:26)
[2021-10-14] MEDS: HYDROmorphone HCl 0.5 MG/0.5 ML SYRINGE 0.25 MG IVPUSH ×5 (11:00→16:32)
--- NOTE | 2021-10-14 11:02 | PM.PNGS ---
Subjective Subjective Date of Service: 10/15/21 Interval history: Feels well. Mild incisional pain. She is tolerating phase 1 bariatric diet Physical Exam Vital Signs: Vital Signs: Last Vital Signs Temp 98.0 F 10/14/21 10:45 Pulse 83 10/14/21 10:50 Resp 14 10/14/21 10:50 BP 136/86 10/14/21 10:50 Pulse Ox 100 10/14/21 10:50 O2 Del Method 10/14/21 10:50 O2 Flow Rate 4 10/14/21 10:50 BMI result Body Mass Index 32.9 GI: Inspection: Yes normal to inspection, Yes incision (clean, dry and intact) and Yes obesity Extrem: Right lower extremity: normal to inspection (no calf tenderness) Left lower extremity: normal to inspection (no calf tenderness) Objective Data Active Medications Albuterol Sulfate (Albuterol Sulfate (0.083%) 2.5 Mg/3 Ml Vial.Neb) 2.5 mg INHALE ONCE PRN PRN Reason: Shortness of Breath/Wheezing Albuterol Sulfate (Albuterol Sulfate 90 Mcg 8 Gm Inhaler) 2 puff INHALE Q4H PRN PRN Reason: wheezing Dextrose (Dextrose 50 % 25 Gm/50 Ml Syringe) 25 gm IVPUSH Q15M PRN; Protocol PRN Reason: per Hypoglycemia Standing Ord. Fentanyl (Fentanyl Citrate/Pf 100 Mcg/2 Ml Vial) 25 mcg IVPUSH Q5M PRN; Protocol PRN Reason: Pain, Moderate (Pain Scale 4-6 Glucose (Glucose Gel 15 Gm Gel..Gram.) 15 gm PO Q15M PRN; Protocol PRN Reason: per Hypoglycemia Standing Ord. Hydromorphone HCl (Hydromorphone Hcl 0.5 Mg/0.5 Ml Syringe) 0.25 mg IVPUSH Q5M PRN; Protocol PRN Reason: Pain, Severe (Pain Scale 7-10) Lactated Ringer's (Lr) 1,000 mls @ 100 mls/hr IVCONT .Q10H KISHA Last Admin: 10/14/21 07:53 Dose: 100 mls/hr Documented By: CHAI Promethazine HCl 6.25 mg/ (Sodium Chloride) 50.25 mls @ 201 mls/hr IV ONCE PRN PRN Reason: Nausea and Vomiting Insulin Human Lispro (Insulin Lispro 100 Unit/Ml 3 Ml Vial) 0 unit SUBCUT Q6H KISHA; Protocol Non-Formulary Medication (Bupropion Hcl) 150 mg PO QAM KISHA Non-Formulary Medication (Topiramate) 50 mg PO DAILY KISHA Ondansetron HCl (Ondansetron Hcl 4 Mg/2 Ml Vial) 4 mg IVPUSH ONCE PRN PRN Reason: Nausea and Vomiting Paroxetine HCl (Paroxetine Hcl 40 Mg Tablet) 40 mg PO DAILY KISHA Labs CBC & Chem 7: 10/15/21 05:32 10/15/21 05:32 Labs: Laboratory Results - last 24 hr 10/13/21 10/14/21 12:05 06:27 POC Glucose 95 COVID-19 ([facility]) Negative COVID-19 Clin Com See Note Procedures Date of Service Date of Service: 10/15/21 Progress Note: A&P Assessment and plan (1) Obesity: Status: Acute Assessment and Plan: s/p laparoscopic sleeve gastrectomy, lysis of adhesions, diaphragmatic hernia repair and gastropexy Doing well Will check am labs and if OK the patient will be discharged home (2) BMI 32.0-32.9,adult: Status: Acute (3) GERD (gastroesophageal reflux disease): Status: Acute (4) Status post repair of paraesophageal diaphragmatic hernia: Status: Acute (5) Diaphragmatic hernia: Status: Acute (6) Status post sleeve gastrectomy: Status: Acute (7) S/P gastric bypass: Status: Acute (8) Diabetes mellitus: Status: Acute (9) Asthma: Status: Acute (10) Stress incontinence: Status: Acute (11) Arthritis: Status: Acute (12) Fibromyalgia: Status: Acute (13) Cutaneous lupus erythematosus: Status: Acute (14) Depression: Status: Acute (15) Anxiety: Status: Acute (16) Fibromyalgia: Status: Acute Time Spent With Patient Time: Total time spent is greater than 50% in coordination of care (as documented) at patient's floor/unit and/or counseling patient: Quality Stroke Does the patient have a stroke diagnosis?: No VTE Prior VTE?: No VTE Risk Level:: Surgical - moderate VTE Device Contraindication: N/A - Device Ordered VTE Drug Contraindication: Treatment Not Indicated
--- NOTE | 2021-10-14 11:06 | P.BOP_ITS ---
Brief Operative Note Date of Service: 10/14/21 Pre-op diagnosis: Severe obesity with comorbidities (see below) Post-op diagnosis: same (& diaphragmatic hernia) Procedure: PROCEDURE: [id number], laparoscopic repair of incarcerated diaphragmatic hernia, laparoscopic lysis of adhesions and laparoscopic sleeve gastrectomy INDICATIONS: This is a 51 year-old female with a BMI of 36.8 kg/m2, history of failed gastric bypass surgery and associated comorbid conditions as described previously. After appropriate workup and a 20.8 lbs preoperative weight loss was performed, the patient was electively scheduled for laparoscopic, possibly open sleeve gastrectomy of the gastric pouch. The risks and complications of the procedure were discussed with the patient in advance, particularly the possibility of ; pulmonary embolism; staple line leak; bleeding; GERD; cardiac, pulmonary, or renal complications; as well as long-term problems such as insufficient weight loss, vitamin deficiency, strictures, or ulcers. The patient understood all the risks, and was in agreement to proceed with surgery. DESCRIPTION OF PROCEDURE: After informed consent was obtained from the patient, the patient was given preoperative antibiotics, and was transferred to the operating room. After successful induction of general anesthesia, pneumatic compressive devices were placed on both lower extremities. An upper endoscopy was performed next. The oropharynx and esophagus appeared to be within normal limits. There was a diaphragmatic hernia present of moderate size consistent with the findings of the preoperative upper GI. The stomach was entered. Then after all fluid and air were suctioned and the stomach was fully decompressed, the scope was withdrawn and secured in the mid esophagus. The patient was then prepped and draped in the usual sterile manner, and abdominal access was established at the right upper quadrant with the Alison technique. A 12 mm blunt port was inserted, and the abdomen was insufflated with CO2 to a pressure of 15 mmHg. Under direct visualization, additional ports were placed, specifically two 5 mm Versi-step ports to the left upper quadrant, and a 5 mm Versi-Step port to the right upper quadrant. 1% lidocaine plain was used to infiltrate all port sites as well as all fascia defects. Using the EndoClose suture passer device, I placed a #1 Polysorb tie across the falciform ligament in order to retract it up against the abdominal wall and prevent injury of the ligament with our instruments during the procedure. Following that, the patient was placed in a steep reverse Trendelenburg position. An additional 5 mm port was placed to the right flank for the Mediflex retractor that was used to retract the left lobe of the liver. There were adhesions between the undersurface of the left lobe of the liver which was lysed with the Thunderbeat. Once this was done the liver retractor was re-positioned to get exposure to the hiatal area. Some omental fat overlying the Susy limb was mobilized and the gastro- jejunostomy was identified. I continued by dissecting between the gastric remnant and the gastric pouch . There were some posterior short gastric vessels that were not previously divided. Those were clipped and divided with the Thunderbeat. Separation of the gastric pouch from the spleen was difficult because of the severe fibrotic reaction from the use of Peristrips at the previous operation. Nevertheless, those were divided and that allowed exposure to the left nicole The gastro-esophageal fat pad was opened with the ultrasonic device (Thunderbeat, Olympus) and the anterior esophagus and hiatus were exposed. The angle of His was opened with the ultrasonic device the fundus of the stomach from any diaphragmatic and splenic attachments. Adhesiolysis took approximately 90 min to complete. There was an obvious significant-sized hiatal hernia. I continued dissecting along the hiatus toward the left nicole and the angle of His. I fully mobilized the fat pad that was incarcerated in the hernia. I then continued by dissecting even further into the posterior retro-esophageal space all the way to the angle of His. I continued to mobilize the esophagus into the mediastinum circumferentially. Both vagal nerves were seen and preserved. At that point, I was able to have at least 3 to 5 cm of esophagus into the abdomen.? After I completely mobilized the esophagus from both the left and right nicole and I had a good mobilization of the esophagus circumferentially, I closed the hernia defect with four interrupted #0 Surgidac sutures using the Endo Stitch device, two of which were placed anterior and two posterior to the esophagus. ? There was significant redundancy of the stomach laterally and posteriorly. The redundant stomach was then divided under direct and continuous endoscopic visualization to prevent narrowing with one Endo HUNTER-45 purple and three HUNTER-45 articulating prange loads using the AEON stapler and loads. Every effort was made that the gastric sleeve had a tubular shape and an even caliber throughout. Once the sleeve resection was completed, the staple line of the gastric sleeve was reinforced with Hemoclips. The resected stomach was retrieved without difficulty from the Alison port. ?An upper endoscopy was performed. There was no narrowing at the GE junction. The scope was easily advanced all the way to the pylorus which was clearly visu alized. There was no narrowing anywhere and the sleeve's caliber was even throughout. The sleeve's staple line was inspected and there was no evidence of ischemia, bleeding or dehiscence. At that point the gastroscope was withdrawn from the patient?s mouth while we were decompressing the bowel and the stomach from any remaining air. I looked into the lesser sac to see how the sleeve was situating and it was situating well. There was no bleeding from the staple line, spleen, or short gastric vessels. The Mediflex retractor was removed, and the undersurface of the liver was inspected and there was no bleeding. The patient was placed in supine position. I closed the fascial defect of the 12 mm port site with a figure of eight #1 Polysorb suture. Then 40 cc of Rupivacaine plain with 10 mg of Dexamethasone were used to infiltrate the fascial closure as well as all skin incisions. A total of 4 ml of Zynrelef was applied in the Alison wound. At this point, the abdomen was deflated, all ports were removed under direct vision, and no bleeding was noted from any of the port sites. The skin incisions were irrigated with saline and were closed with 4-0 absorbable monofilament sutures. Steri- Strips and OpSites were used to cover all incisions. The patient was extubated and was transferred in stable condition to the recovery room for further care. I was present and performed all bai parts of the procedure. Paris Centeno was the wet process assistant head miller. There were no residents to assist with this case. Gordon Martini MD, PhD, FACS Surgeon: Rashawn Martini MD Anesthesia: GETA, local and other (TAP block and 4 ml of Zynrelef) Was an Electronics Hardware Design Engineer used for this Procedure?: Yes Electronics Hardware Design Engineer: Vania Centeno Estimated blood loss (mL): 10 IV fluids (mL): 2,500 Urine output (mL): 0 (No Barrow to gravity) Pathology: other (Stomach) Condition: stable Disposition: PACU
--- NOTE | 2021-10-14 11:06 | PM.DS ---
DS: Providers Provider Date of Service: 10/15/21 Primary care physician: Unknown Physician DS: Summary Hospital Course Hospital Course: ADMITTING DIAGNOSIS: morbid obesity, hx of RNYGBP, diaphragmatic hernia, DM, fibromyalgia, Lupus, arthritis, urinary incontinence, GERD DISCHARGE DIAGNOSIS: same, s/p laparoscopic sleeve gastrectomy and repair diaphragmatic hernia PAST SURGICAL HISTORY: gastric by pass, appendectomy, abdominoplasty, breast reduction, shoulder surgery PROCEDURE: upper endoscopy, laparoscopic sleeve gastrectomy and repair of diaphragmatic hernia hernia DISCHARGE SUMMARY: History of Present Illness: The patient is a 51 year-old woman with a BMI of 36.7kg/m2 and associated co-morbidities as described above. The patient had extensive work-up,lost 21 lbs preoperatively and was electively scheduled for laparoscopic, possible open sleeve gastrectomy and gastropexy. Risks and complications of the surgery were discussed with the patient in advance, particularly the possibility of , pulmonary embolism, anastomotic leak, bleeding, bowel injury, GERD, cardiac, renal or pulmonary complications. The patient understood all the risks and was in agreement with the surgical plan. Hospital Course: The patient underwent an uneventful laparoscopic sleeve gastrectomy with gastropexy and repair of diaphragmatic hernia on the day of admission. Postoperatively, the patient was transferred to the surgical floor. The patient received IV Acetaminophen and IV dilaudid for pain control. Patient was started on bariatric phase 1 diet POD #0. On postoperative day one, the patient was feeling well without nausea, vomiting, fevers, or tachycardia. The patient had some mild incisional pain and the abdomen was soft. On the morning of postoperative day one, the patient was continued on 1 ounce of water or ice every half hour. During the day, the patient did fairly well, having some incisional pain, but able to ambulate adequately and to tolerate liquids well. Since the patient is doing well, we decided that the patient was ready to be discharged. The patient was given instructions to follow-up with me next week and to call my office for any fever over 101, persistent abdominal pain, nausea, vomiting, GERD, symptoms of DVT such as calf tenderness, or leg swelling, or pulmonary embolism such as chest pain or shortness of breath. The patient was also instructed to drink 40-60 ounces of liquids per day using the 1-ounce cups. The patient had been given prescriptions for Tylenol for pain, Zofran prn for nausea, and pantoprazole and carafate previously. The patient was encouraged to ambulate and use the incentive spirometer. The patient was allowed to shower, but no baths, and encouraged to stay active at home. All of these instructions were given to the patient personally. All questions were answered and the patient understood all instructions, the instructions were also given to the patient in print. Time Spent with Patient Time attestation: Total time spent providing and/or coordinating discharge services: Discharge coordination time: Less than 30 minutes Quality: Safe Use of Opioids Does Pt have an Active Cancer Diagnosis on the Problem List?: No Quality: Stroke Does the patient have a stroke diagnosis?: No Physical Exam Vital Signs: Vital Signs: Last Vital Signs Temp 98.0 F 10/14/21 10:45 Pulse 83 10/14/21 10:50 Resp 16 10/14/21 11:00 BP 136/86 10/14/21 10:50 Pulse Ox 100 10/14/21 10:50 O2 Del Method 10/14/21 10:50 O2 Flow Rate 4 10/14/21 10:50 BMI result Body Mass Index 32.9 DS: Data Data Completed and Pending Pending studies at discharge: Pending at discharge 10/14/21 10:05 Surgical [PTH] Routine Labs on day of discharge: Laboratory Results - last 24 hr 10/13/21 10/14/21 12:05 06:27 POC Glucose 95 COVID-19 ([facility]) Negative COVID-19 Clin Com See Note Discharge Plan Discharge Patient Disposition: Home, Self-Care Discharge Diagnosis: Severe obesity Referrals: Physician,Unknown J [Primary Care Provider] - 1 Week Discharge Medications: Continued pantoprazole 40 mg tablet,delayed release (DR/EC) 40 mg PO DAILY Qty: 30 3RF paroxetine HCl 20 mg tablet 20 mg PO DAILY duloxetine 30 mg capsule,delayed release(DR/EC) 30 mg PO DAILY topiramate 50 mg cap,sprinkle,ER 24hr dose pack 50 mg PO DAILY albuterol sulfate [ProAir HFA] 90 mcg/actuation HFA aerosol inhaler 2 puff inhalation Q4H PRN (Reason: wheezing) hydrocortisone 1 % cream 1 appl topical BID PRN (Reason: Itching) ondansetron HCl 4 mg tablet 4 mg PO Q8H PRN (Reason: Nausea) bupropion HCl 150 mg tablet sustained-release 12 hr 150 mg PO QAM valacyclovir 1 gram tablet 1,000 mg PO DAILY Hold Instructions: Discuss with Dr Frazier loratadine 10 mg tablet 10 mg PO DAILY Myrbetriq 50 mg tablet extended release 24 hr 50 mg PO DAILY Hold Instructions: Discuss wih Dr Frazier oxybutynin chloride 5 mg tablet extended release 24hr 5 mg PO DAILY Hold Instructions: Discuss with Dr Frazier lidocaine 5 % adhesive patch,medicated 1 patch topical DAILY PRN (Reason: mild pain) lidocaine 5 % ointment 1 appl topical TID paroxetine HCl 40 mg tablet 40 mg PO QAM duloxetine 60 mg capsule,delayed release(/EC) 60 mg PO DAILY Held gabapentin 300 mg capsule 900 mg PO BID Hold Instructions: Resume on 10/20/21. Rx Instructions: 900 mg am 600mg afternoon 900 mg night insulin lispro [Admelog U-100 Insulin lispro] 100 unit/mL solution 5 unit subcut TID Hold Instructions: Discuss with Dr Lianet Macias Solostar U-100 Insulin 100 unit/mL (3 mL) insulin pen 10 unit subcut .PRN Hold Instructions: Discuss with Dr Martini diazepam 10 mg tablet 10 mg PO BEDTIME PRN (Reason: Insomnia) Hold Instructions: Discuss with Dr Frazier tizanidine 2 mg capsule 2 mg PO TID PRN (Reason: muscle spasm) Hold Instructions: Discuss with Dr Frazier pregabalin 100 mg capsule 100 mg PO BID Hold Instructions: Discuss with Dr Frazier gabapentin 300 mg capsule 600 mg PO DAILY@1200 Hold Instructions: Discuss with Dr Frazier Rx Instructions: 900 mg am 600mg afternoon 900 mg night trazodone 300 mg tablet 400 mg PO BEDTIME PRN (Reason: Insomnia) Hold Instructions: Resume on 10/20/21. Discontinued ondansetron HCl 4 mg tablet 4 mg PO Q12H Qty: 20 0RF polyethylene glycol 3350 [Miralax] 17 gram powder in packet 17 g PO DAILY Qty: 14 0RF Rx Instructions: Mix each packet with 8oz of water and do 7 packets on 10/12/21 and another 7 packets on 10/13/21 diclofenac sodium [Arthritis Pain (diclofenac)] 1 % gel 2 g topical QID Rx Instructions: apply to single elbow, wrist or hand; for hand includes palm/fingers/back of hand multivitamin Tablet 1 tab PO DAILY calcium carbonate-vitamin D3 600 mg-10 mcg (400 unit) tablet 1 tab PO BID sennosides [Natural Senna Laxative] 8.6 mg tablet 8.6 mg PO BEDTIME Discharge Orders: Discharge Order (Routine); Ordered 10/15/21 Ordered By: Rashawn Martini Activity on Discharge: As tolerated Activity Restrictions/Additional Instructions: No tub baths, sex or returning to work until discussed at first post op appointment. No exercise, alcohol, tobacco or illegal drug use. Continue to use incentive spirometer hourly while awake. Walk in home for 5- 10 minutes every 2 hours during the first week. Continue phase 1 diet today and start phase 2 diet tomorrow morning. Follow all instructions in the bariatric handbook and call with any questions. 1. Please call your doctor or come back to the emergency room should any new symptoms arise. 2. You will receive a courtesy call from [facility] 24-48 hours after discharge. 3. Activity: abstain from alcohol, practice limited stair climbing, no bending, no driving, no exercise, no illicit substances, no lifting, no sex, no tub bath, no work. 4. Diet: continue as discussed with Dr. Martini. 5. Dressing Change/Wound Care: Do not change or remove surgical dressings unless they are wet or soiled. 6. Call your doctor if: - Your temperature exceeds 101.5 F - You experience excessive pain or swelling - You have an unexpected reaction to medication - You have excessive bleeding - You experience continued vomiting/nausea - Your incision begins to separate - Your incision shows signs of infection such as increased redness, swelling, excessive pain, heat, or drainage (light blood or clear fluid is normal) 7. General instructions: No lifting greater than 5 lbs for the next 4 weeks[address] No driving within 24 hours of taking narcotic pain medications. If you do not move your bowels in the next 2 days, please take milk of magnesia over the counter. Please follow the post op diet and do not advance your diet until you are seen in the office in about 2 weeks. Please walk around your home every hour or two to prevent blood clots from forming in your legs. You do not need to wake from sleeping to walk. Please sleep in a bed or couch to prevent kinking at the hips and knees. Please take your incentive spirometer (your lung pediatric physician) home with you and use it for the next few days to prevent pneumonias. You may shower, no hot tubs, baths or swimming pools. Please call the office with any questions or concerns such as increasing abdominal pain, fever, chills, shortness of breath, chest pain, leg pain or swelling, or redness or drainage from your incisions. Do not hesitate to contact the office with any questions at . The patient's medical history has been reviewed and they are considered low risk for post op DVT and therefore DVT prophylaxis is not considered necessary. Travel after surgery was reviewed. The patient has not disclosed any travel plans during the first 30 days after surgery and they have been advised that within the first 30 days after surgery any bus, plane, train or car travel over 2 hours in duration is contraindicated due to the possibility of developing blood clots from immobility. Any travel, needs to include periods of ambulation of 10 minutes in duration every 2 hours. The patient was instructed to discuss any plans for travel during this period with their bariatric surgeon. Care Plan Goals: weight loss Health Concerns: obesity Plan of Treatment: No tub baths, sex or returning to work until discussed at first post op appointment. No exercise, alcohol, tobacco or illegal drug use. Continue to use incentive spirometer hourly while awake. Walk in home for 5- 10 minutes every 2 hours during the first week. Continue phase 1 diet today and start phase 2 diet tomorrow morning. Follow all instructions in the bariatric handbook and call with any questions. 1. Please call your doctor or come back to the emergency room should any new symptoms arise. 2. You will receive a courtesy call from [facility] 24-48 hours after discharge. 3. Activity: abstain from alcohol, practice limited stair climbing, no bending, no driving, no exercise, no illicit substances, no lifting, no sex, no tub bath, no work. 4. Diet: continue as discussed with Dr. Martini. 5. Dressing Change/Wound Care: Do not change or remove surgical dressings unless they are wet or soiled. 6. Call your doctor if: - Your temperature exceeds 101.5 F - You experience excessive pain or swelling - You have an unexpected reaction to medication - You have excessive bleeding - You experience continued vomiting/nausea - Your incision begins to separate - Your incision shows signs of infection such as increased redness, swelling, excessive pain, heat, or drainage (light blood or clear fluid is normal) 7. General instructions: No lifting greater than 5 lbs for the next 4 weeks. No driving within 24 hours of taking narcotic pain medications. If you do not move your bowels in the next 2 days, please take milk of magnesia over the counter. Please follow the post op diet and do not advance your diet until you are seen in the office in about 2 weeks. Please walk around your home every hour or two to prevent blood clots from forming in your legs. You do not need to wake from sleeping to walk. Please sleep in a bed or couch to prevent kinking at the hips and knees. Please take your incentive spirometer (your lung pediatric physician) home with you and use it for the next few days to prevent pneumonias. You may shower, no hot tubs, baths or swimming pools. Please call the office with any questions or concerns such as increasing abdominal pain, fever, chills, shortness of breath, chest pain, leg pain or swelling, or redness or drainage from your incisions. Do not hesitate to contact the office with any questions at . The patient's medical history has been reviewed and they are considered low risk for post op DVT and therefore DVT prophylaxis is not considered necessary. Travel after surgery was reviewed. The patient has not disclosed any travel plans during the first 30 days after surgery and they have been advised that within the first 30 days after surgery any bus, plane, train or car travel over 2 hours in duration is contraindicated due to the possibility of developing blood clots from immobility. Any travel, needs to include periods of ambulation of 10 minutes in duration every 2 hours. The patient was instructed to discuss any plans for travel during this period with their bariatric surgeon. Assessment: stable post op sleeve gastrectomy and hiatla hernia repair after RNYGBP
[2021-10-14 11:11] LABS: Hematocrit 38.8 % (37.0-47.0); Hemoglobin 13.1 g/dl (12.0-16.0)
[2021-10-14] MEDS: Famotidine/PF 20 MG/2 ML VIAL IVPUSH ×2 (11:20→19:30)
[2021-10-14 11:31] LABS: Anion Gap 14 (12-20); Blood Urea Nitrogen 11 mg/dL (9-16); Calcium 8.7 mg/dL (8.4-10.2); Carbon Dioxide 22 mmol/L (22-29); Chloride 108 mmol/L (96-108); Creatinine Clr Calc Pharmacy 75.8; Estimated Glomerular Filt Rate > 60; Glucose Random 150 mg/dL (60-115); Potassium 3.9 mmol/L (3.3-5.1); Sodium 140 mmol/L (135-145)
--- NOTE | 2021-10-14 12:02 | PHA.MEDREC ---
Pharmacy Consult ? Medication Reconciliation Pharmacy has reviewed the medication reconciliation compelted by nursing. Adjusted duloxetine 90 mg daily to duloxetine 60 mg and duloxetine for easy continuation. Insulin were on hold per MD however patient has not filled medication is over a year. Faby Mariee, PharmD
[2021-10-14 12:32] LABS: Glucose, Whole Blood 125 mg/dL (60-115)
[2021-10-14 16:19] LABS: Glucose, Whole Blood 124 mg/dL (60-115)
[2021-10-14] MEDS: ondansetron HCL 4 MG/2 ML VIAL IVPUSH (19:30)
[2021-10-14] MEDS: Topiramate 25 MG TABLET PO (19:30)
[2021-10-14] MEDS: 0.9 % Sodium Chloride Flush 3 ML SYRINGE IVFLUSH (19:31)
[2021-10-14 21:57] LABS: Glucose, Whole Blood 112 mg/dL (60-115)
[2021-10-15] MEDS: HYDROmorphone HCl 0.5 MG/0.5 ML SYRINGE 0.25 MG IVPUSH (00:20)
[2021-10-15 03:36] VITALS: BP 122/70; PULSE 60; RESP 18; TEMP 36.4; O2SAT 98
[2021-10-15] MEDS: ondansetron HCL 4 MG/2 ML VIAL IVPUSH (04:01)
[2021-10-15] MEDS: Lactated Ringers 1,000 ML 100 ML IVCONT (04:01)
[2021-10-15 04:41] LABS: Glucose, Whole Blood 89 mg/dL (60-115)
[2021-10-15 05:55] LABS: MANUAL DIFF FLAG NO
[2021-10-15 06:00] LABS: Basophils Percent Auto 0.2 % (0-2); Eosinophils Percent Auto 0.1 % (0-4); Hematocrit 38.1 % (37.0-47.0); Hemoglobin 12.9 g/dl (12.0-16.0); Imm Gran Abs Auto 0.03 X10*3/uL (0.00-0.03); Imm Gran Pct Auto 0.3 % (0.0-0.4); Lymphocytes Percent Auto 22.6 % (20-40); Mean Corpuscular HGB Conc 33.9 g/dl (31.0-35.0); Mean Corpuscular Hemoglobin 35.4 pg (27.0-33.0); Mean Corpuscular Volume 104.7 fL (80.0-98.0); Mean Platelet Volume 9.8 fL (9.4-12.3); Monocytes Absolute Auto 0.7 X10*3/uL (0.1-1.2); Monocytes Percent Auto 7.7 % (2-11); Neutrophils Absolute Auto 6.2 x10*3/uL (2.0-8.3); Neutrophils Percent Auto 69.1 % (45-73); Platelet Count 199 X10*3/uL (160-400); Red Blood Count 3.64 X10*6/uL (4.20-5.50); Red Cell Distribution Width 11.8 % (11.0-16.0)
[2021-10-15 06:14] LABS: Anion Gap 14 (12-20); Blood Urea Nitrogen 9 mg/dL (9-16); Calcium 9.2 mg/dL (8.4-10.2); Carbon Dioxide 27 mmol/L (22-29); Chloride 104 mmol/L (96-108); Creatinine Clr Calc Pharmacy 81.2; Estimated Glomerular Filt Rate > 60; Glucose Random 89 mg/dL (60-115); Potassium 4.2 mmol/L (3.3-5.1); Sodium 141 mmol/L (135-145)
[2021-10-15 07:12] VITALS: BP 117/61; PULSE 63; RESP 18; TEMP 36.4; O2SAT 99
[2021-10-15 07:47] LABS: Glucose, Whole Blood 76 mg/dL (60-115)
[2021-10-15] MEDS: Topiramate 25 MG TABLET PO (08:02)
[2021-10-15] MEDS: PARoxetine HCL 40 MG TABLET PO (08:02)
[2021-10-15] MEDS: 0.9 % Sodium Chloride Flush 3 ML SYRINGE IVFLUSH (08:02)
[2021-10-15] MEDS: buPROPion HCl XL 150 MG TAB.ER.24H PO (08:02)
[2021-10-15] MEDS: Famotidine/PF 20 MG/2 ML VIAL IVPUSH (08:02)
--- NOTE | 2021-10-15 08:36 | HO.POSTANES ---
Post Anesthesia Evaluation Post Anesthesia Evaluation Vital Signs: Vital Signs Temp Pulse Resp BP Pulse Ox O2 Del Method 10/15/21 07:12 97.6 F 63 18 117/61 99 Room Air 10/15/21 03:36 97.6 F 60 18 122/70 98 Room Air 10/14/21 23:40 97.7 F 61 17 118/66 99 Room Air Anesthesia: General Endotracheal-GETA Mental Status: Awake Pain Control: Satisfactory Nausea/Vomiting: None Hydration: Adequate Anesthesia-Related Issues: No Anes. Related Issues
--- NOTE | 2021-10-15 11:21 | MHC.CM.PN ---
PT REPORTS SHE LIVES WITH HER S/O WHO IS ALSO HER LEAD TECHNICAL WRITER DAILY SHE REPORTS SHE USES ONLY DIABETIC SUPPLIES FOR DME AND HAS NO OTHER HOME SERVICES PT REPORTS SHE IS COVID-19 VACCINATED PT SAYS SHE HAS A HCP, COPY REQUESTED SHE REPORTS HER PCP IS DR MARTINEZ IN [facility] PT WILL DC HOME TODAY WITH NO SERVICES SHE WILL ARRANGE HER OWN TRANSPORTATION
== END 2021-10-15 10:39 | disposition home or self-care (01) | DRG 403 ==
LOC: HO.SSS 11:06 → HO.SSSA 11:17 → HO.S3 11:19
PROVIDERS: Physician Assistant; Physician Assistant Surgical; Admitting Provider Surgery; PCP Internal Medicine; Visit Provider Surgery
PROC: 0DB64Z3 Excision of Stomach, Percutaneous Endoscopic Approach, Vertical (ICD-10-PCS; CPT 43845; principal; 2021-10-14 07:30)
DX: E66.01 Morbid (severe) obesity due to excess calories (principal); M32.9 Systemic lupus erythematosus, unspecified; E11.9 Type 2 diabetes mellitus without complications; M19.90 Unspecified osteoarthritis, unspecified site; K66.0 Peritoneal adhesions (postprocedural) (postinfection); M79.7 Fibromyalgia; Z68.36 Body mass index [BMI] 36.0-36.9, adult; Z20.822 Contact with and (suspected) exposure to COVID-19; Z98.84 Bariatric surgery status; Z88.5 Allergy status to narcotic agent; Z79.4 Long term (current) use of insulin; Z79.899 Other long term (current) drug therapy
CPT/HCPCS: 36415; 80048; 80053; 80061; 82947; 83036; 83525; 84443; 85014; 85018; 85025; 85610; 85730; 86140; 86850; 86900; 86901; 87635; 88307; 88342; C9088; J0131; J0690; J1100; J1170; J2250; J2405; J2550; J2795; J3010

== ENCOUNTER 2021-11-01 11:35 | Emergency (ER) | payer OTHER, SELFPAY ==
[2021-11-01 11:53] VITALS: BP 128/81; PULSE 74; RESP 18; TEMP 37.1; O2SAT 98; BMI 30.9
[2021-11-01 12:35] LABS: MANUAL DIFF FLAG NO
[2021-11-01 12:38] LABS: Basophils Absolute Auto 0.1 X10*3/uL (0.0-0.2); Basophils Percent Auto 1.1 % (0-2); Eosinophils Absolute Auto 0.1 X10*3/uL (0.0-0.4); Eosinophils Percent Auto 1.9 % (0-4); Hematocrit 41.6 % (37.0-47.0); Hemoglobin 13.8 g/dl (12.0-16.0); Imm Gran Abs Auto 0.02 X10*3/uL (0.00-0.03); Imm Gran Pct Auto 0.4 % (0.0-0.4); Lymphocytes Percent Auto 35.9 % (20-40); Mean Corpuscular HGB Conc 33.2 g/dl (31.0-35.0); Mean Corpuscular Hemoglobin 34.7 pg (27.0-33.0); Mean Corpuscular Volume 104.5 fL (80.0-98.0); Monocytes Absolute Auto 0.4 X10*3/uL (0.1-1.2); Monocytes Percent Auto 7.1 % (2-11); Neutrophils Percent Auto 53.6 % (45-73); Platelet Count 246 X10*3/uL (160-400); Red Blood Count 3.98 X10*6/uL (4.20-5.50); Red Cell Distribution Width 12.4 % (11.0-16.0); White Blood Count 5.7 X10*3/uL (4.8-10.8)
[2021-11-01 12:55] LABS: Anion Gap 11 (12-20); Carbon Dioxide 26 mmol/L (22-29); Chloride 109 mmol/L (96-108); Potassium 3.8 mmol/L (3.3-5.1); Sodium 142 mmol/L (135-145)
[2021-11-01 12:56] LABS: Alanine Aminotransferase 38 U/L (0-31); Albumin Level 4.4 g/dL (3.5-5.0); Alkaline Phosphatase 86 U/L (39-117); Aspartate Amino Transferase 28 U/L (5-31); Bilirubin Direct 0.2 mg/dL (0.0-0.5); Bilirubin Total 0.3 mg/dL (0.0-1.0); Blood Urea Nitrogen 17 mg/dL (9-16); Calcium 9.3 mg/dL (8.4-10.2); Creatinine Clr Calc Pharmacy 78.5; Estimated Glomerular Filt Rate > 60; Glucose Random 100 mg/dL (60-115); Total Protein 6.8 g/dL (6.5-8.0)
== END 2021-11-01 13:01 | disposition left against medical advice (07) ==
PROVIDERS: Emergency Provider Emergency Medicine
DX: R10.9 Unspecified abdominal pain (principal); Z98.84 Bariatric surgery status; Z79.899 Other long term (current) drug therapy
CPT/HCPCS: 36415; 80053; 82248; 85025; 99281; 99283

== ENCOUNTER → 2022-05-25 13:48 | Outpatient (BNVA) | payer OTHER, SELFPAY | PROVIDERS: PCP Internal Medicine; Visit Provider Physician Assistant | DX: Z13.89 Encounter for screening for other disorder (principal) ==